=== PATIENT | female | born 1930 | race Caucasian/White ===

== ENCOUNTER 2018-09-01 13:10 | Day surgery (SDC) | payer MEDICARE ==
[~2018-09-01] VITALS: Ht 162.6 cm; Wt 63.0 kg
[~2018-09-01 13:10] MED LIST: ATEN25TA PO; ATIV1TAB7 PO; DIGO0.127 PO; ELIQ2.5T PO; ENTR1TAB PO; FURO40TA2 PO; LOPR1TAB7 PO; NORV5TAB PO; NS 1,000 ML IV ONE; PROZ10CA7 PO; PROZ20CA11 PO; ZOCO20TA PO
[2018-09-01] MEDS ORDERED: MIDAZOLAM INJ 2 MG/2 ML VIAL (J2250) As Ordered ONE (14:03)
[2018-09-01] MEDS ORDERED: LIDOCAINE VISCOUS 2% SOLN 15ML UDC As Ordered ONE (14:28)
[2018-09-01] MEDS ORDERED: LABETALOL HCL 100 MG/20 ML VIAL As Ordered ONE (14:37)
[2018-09-01 15:27] VITALS: BP 127/82
--- NOTE | 2018-09-01 16:16 | T-ECHO ---
DATE OF PROCEDURE: 09/01/2018 REFERRING PHYSICIAN: Daniel Nielsen MD INDICATION: Nonrheumatic mitral valve regurgitation. PREPROCEDURE DIAGNOSIS: Nonrheumatic mitral valve regurgitation. POSTPROCEDURE DIAGNOSIS: Nonrheumatic mitral regurgitation, nonrheumatic aortic valve regurgitation, severe thoracic aorta atherosclerosis. PROCEDURE: Transesophageal echocardiogram. SURGEON: Daniel Nielsen MD [employer] REPAIRMEN: None. IV SEDATION: Midazolam 3 mg IV. ADDITIONAL MEDICATIONS GIVEN: Labetalol 10 mg IV to control severe hypertension. COMPLICATIONS: None. PROCEDURE DESCRIPTION: Rhythm was atrial fibrillation. The patient received a total of 3 mg Midazolam IV for IV conscious sedation. She received labetalol 10 mg IV to control severe hypertension. At the start of the procedure she received viscus lidocaine 2% times 30 mL to gargle and swallow. Esophageal intubation was accomplished without difficulty by Dr. Nielsen using a Ulises's three-dimensional transesophageal echocardiogram probe. The left and right ventricles showed normal size and systolic function and without regional wall motion abnormalities. Left ventricle ejection fraction was 65-70% by visual assessment. Left atrial enlargement was present and there was enlargement of the left atrial appendage. Atrial septum was intact anatomically and by color flow Doppler. The right atrium did not appear to be enlarged. No mass or thrombi were seen within the atria or their appendages. Pulmonary vein flow by pulse wave Doppler in the left upper pulmonary vein was consistent with atrial fibrillation. The left upper pulmonary vein appeared enlarged. Aortic valve was three-cuspid and displayed moderate focal thickening and focal calcific deposits. No reduction in aortic valve cusp mobility and no fusion of the aortic cusps. The aortic valve did not appear to be stenotic. Moderate central aortic valve regurgitation was present. At least mild mitral annular calcification was present. Three jets of mitral regurgitation were present. The largest of mitral valve regurgitation jets showed moderate mitral regurgitation. No mitral valve prolapse. No broken chordae or flail segments of the mitral leaflets. No mitral valve prolapse. No mitral stenosis. Tricuspid leaflets appeared structurally and functionally normal. Very mild tricuspid regurgitation was present. Pulmonic valve appeared unremarkable. No pericardial effusion. The aortic arch and descending thoracic aorta showed severe and diffuse atherosclerotic plaque/atheroma. CONCLUSIONS: 1. Nonrheumatic mitral valve disease/mitral annular calcification associated with moderate mitral valve regurgitation. No mitral stenosis. 2. Degenerative, calcific aortic valve disease with moderate aortic regurgitation. No aortic stenosis. 3. Normal left and right ventricle systolic function without regional wall motion abnormalities. Left ventricle ejection fraction 65-70% by visual estimate. 4. Severe atheroma involving the distal aortic arch and descending thoracic aorta.
== END 2018-09-01 15:33 | disposition home or self-care (01) ==
LOC: M OPP 13:10
PROVIDERS: ATTEND Internal Medicine Cardiovascular Disease
DX: I34.1 Nonrheumatic mitral (valve) prolapse (principal); I50.22 Chronic systolic (congestive) heart failure; I48.2 Chronic atrial fibrillation; K21.9 Gastro-esophageal reflux disease without esophagitis; E78.5 Hyperlipidemia, unspecified; Z79.899 Other long term (current) drug therapy
CPT/HCPCS: 93312; 93320; 93325; J2250